=== PATIENT | male | born 1975 | race Caucasian/White ===

== ENCOUNTER 2020-04-30 03:58 | Emergency (ER) | payer SELFPAY ==
[~2020-04-30] VITALS: Ht 175.3 cm; Wt 83.2 kg
--- NOTE | 2020-04-30 04:10 | PHYS DOC ---
General Adult HPI: HPI: "..I got over heated a week ago working with a [employer] e[employer].. .. I was working for [employer].. and I got very weak.. that was about same time.. I got this Rt. arm numbness and pain... its not gone away..." Patient is a 44 year old male inmate from [facility] who presents with above hx and complaints of tingle and numbness in Rt. arm x 1 week.. Pt. reports a " over heating episode" working last week when the Rt. arm numbness and weakness developed. Pt. 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 Pt. reportedly will be released from [facility] next week with 5 yrs probation.. Patient does still smoke tobacco occasionally. No recent travel outside the [place] area. No history of immune suppression. Patient denies any trauma to the right arm. Patient has been exposed to inmates who have COVID. Pt. reports pain and or numbness that start s in neck / shoulder area and radiates down Rt. arm. Distal capillary refill is equal to Lt. arm and hand. Sensations seem to follow radial nerve in upper arm. DTR + 2 at brachial. This is equal in both arms. No Tinel sign. Pt. is right hand dominate. Review of Systems: Review of Systems: Constitutional: Denies fever or chills Eyes: Denies change in visual acuity HENT: Denies nasal congestion or sore throat Respiratory: Denies cough or shortness of breath Cardiovascular: Denies chest pain or edema GI: Denies abdominal pain, nausea, vomiting, bloody stools or diarrhea : Denies dysuria Musculoskeletal: Complaints of Rt. arm pain, weakness, and tingle sensation the past week. Integument: Denies rash Neurologic: Denies headache, focal weakness or sensory changes Endocrine: Denies polyuria or polydipsia Lymphatic: Denies swollen glands Psychiatric: Denies depression or anxiety Heart Score: HEART Score for Chest Pain: HEART Score for Chest Pain Response (Comments) Value History Slighlty/Non-Suspicious 0 ECG Normal 0 Age < 45 0 Risk Factors 1 or 2 Risk Factors 1 Total 1 Risk Factors: Risk Factors: DM, Current or recent (<one month) smoker, HTN, HLP, family history of CAD, obesity. Risk Scores: Score 0 - 3: 2.5% MACE over next 6 weeks - Discharge Home Score 4 - 6: 20.3% MACE over next 6 weeks - Admit for Clinical Observation Score 7 - 10: 72.7% MACE over next 6 weeks - Early Invasive Strategies Family History: Family History: Non Contributory Current Medications: Current Meds: See Nursing for home meds. Allergies: Allergies: NKDA Physical Exam: PE: Constitutional: Well developed, well nourished, no acute distress, non-toxic appearance. [] HENT: Normocephalic, atraumatic, bilateral external ears normal, oropharynx moist, no oral exudates, nose normal. [] Eyes: PERRLA, EOMI, conjunctiva normal, no discharge. [] Neck: Normal range of motion, mild trapezius on Rt. tenderness, supple, no stridor. [] Cardiovascular: Bradycardic heart rate regular rhythm, no murmur [] Lungs & Thorax: Bilateral breath sounds equal at apexes with few scattered wheezes on auscultation [] Abdomen: Bowel sounds normal, soft, no tenderness, no masses, no pulsatile masses. [] Skin: Warm, dry, no erythema, no rash. Multiple tattoos Back: No tenderness, no CVA tenderness. [] Extremities: Rt. arm tenderness- seems to follow radial nerve , , no cyanosis, no clubbing, ROM intact, no edema. [] Neurologic: Alert and oriented X 3, normal motor function, normal sensory function, no focal deficits noted. DTR + 2 brachial. Psychologic: Affect anxious, judgement normal, mood normal. [] EKG: EKG: My interpretation of EKG shows a sinus bradycardia at 57 bpm. No findings of acute STEMI of contralateral changes [] Radiology/Procedures: Radiology/Procedures: [][address] [address] IMAGING REPORT Signed PATIENT: RHIANNA PARISI AACCOUNT: [id number] : 1975 LOCATION: ER AGE: 44 SEX: M EXAM STATUS: REG ER ORD. PHYSICIAN: KATHY ARTEAGA MD REASON: Hx. Rt. arm numbness and weakness x 1 week PROCEDURE: CT HEAD AND CERVICAL SPINE WO INDICATION: Reason: Hx. Rt. arm numbness and weakness x 1 week / Spl. Instructions: / History: COMPARISON: None. TECHNIQUE: Axial CT images obtained through the head and cervical spine. One or more of the following individualized dose reduction techniques were utilized for this examination: 1. Automated exposure control; 2. Adjustment of the mA and/or kV according to patient size; 3. Use of iterative reconstruction technique. FINDINGS: Head: No midline shift. Suprasellar cistern is not effaced. No hydrocephalus. No acute intracranial hemorrhage. Cervical spine: Degenerative changes of the spine are identified with osteophyte formation of the vertebral body endplates as well as uncovertebral and facet hypertrophy with some small disc protrusions as well. No evidence of acute fracture or dislocation IMPRESSION: * No acute intracranial hemorrhage. * No acute fracture of the cervical spine. * There is degenerative changes of the cervical spine. Electronically signed by: Guillermo Peterson MD (04/30/2020 5:26 AM) [id number] DICTATED AND SIGNED BY: GUILLERMO PETERSON MD DATE: 04/30/20525 CC: KATHY ARTEAGA MD; PCP,NO ~ Course & Med Decision Making: Course & Med Decision Making Pertinent Labs and Imaging studies reviewed. (See chart for details) Patient take Tylenol or ibuprofen for discomfort. Patient use ice packs as needed. Patient follow-up with primary care. Return if any concerns. Impression: 1. 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 Cervical digit degenerative joint changes 3 . Possible Over use syndrome [] Dragon Disclaimer: Dragon Disclaimer: This electronic medical record was generated, in whole or in part, using a voice recognition dictation system. Departure Departure: Disposition: 01 HOME/RESIDENCE PRIOR TO ADM Condition: STABLE Referrals: PCP,NO (PCP) Justification of Admission: Justification of Admission: Justification of Admission Dx: N/A Dragon Disclaimer This chart was dictated in whole or in part using Voice Recognition software in a busy, high-work load, and often noisy Emergency Department environment. It may contain unintended and wholly unrecognized errors or omissions. KATHY ARTEAGA MD Apr 30, 2020 04:10
[2020-04-30] MEDS ORDERED: IV RINGERS SOLUTION,LACTATED 1,000 ML IV SCH (04:18)
[2020-04-30] MEDS ORDERED: KETOROLAC 30 MG/ML VIAL. IVP ONE (04:30)
[2020-04-30 04:58] LABS: CALCIUM 8.4 mg/dL (8.5-10.1); CREATININE 0.9 mg/dL (0.7-1.3); GFR 92.5; POTASSIUM 4.2 mmol/L (3.5-5.1)
[2020-04-30 05:00] LABS: BASO % 1 % (0-3); EOS # 0.2 x10^3/uL (0.0-0.7); EOS % 4 % (0-3); HEMATOCRIT 39.1 % (39.0-53.0); HEMOGLOBIN 13.4 g/dL (13.0-17.5); LYMPH # 1.3 x10^3/uL (1.0-4.8); LYMPH % 27 % (24-48); MEAN CORPUSCULAR HEMOGLOBIN 34 pg (25-35); MEAN CORPUSCULAR HGB CONC 34 g/dL (31-37); MEAN CORPUSCULAR VOLUME 98 fL (79-100); MONO # 0.5 x10^3/uL (0.0-1.1); MONO % 11 % (0-9); NEUT # 2.9 x10^3uL (1.8-7.7); NEUT % 58 % (31-73); PLATELET COUNT 229 x10^3/uL (140-400); RED BLOOD COUNT 3.98 x10^6/uL (4.30-5.70); RED CELL DISTRIBUTION WIDTH 13.2 % (11.5-14.5)
--- NOTE | 2020-04-30 05:03 | EKG ---
[address] [address] Test Date: 2020-04-30 Test Time: 04:11:05 Pat Name: RHIANNA PARISI Department: Room: Gender: M [employer]: : 1975 Requested By: KATHY ARTEAGA Order Number: [id number] Reading MD: Richi Lyons MD Measurements Intervals [place] Rate: 57 P: 29 WA: 144 QRS: 56 QRSD: 102 T: 42 QT: 398 QTc: 390 Interpretive Statements SINUS RHYTHM Electronically Signed On 05-02-2020 13:18:18 CDT by Richi Lyons MD
[2020-04-30 05:10] LABS: ALBUMIN 3.6 g/dL (3.4-5.0); C REACTIVE PROTEIN 7.6 mg/L (0-3.3); DIRECT BILIRUBIN 0.1 mg/dL (0.0-0.2); TOTAL BILIRUBIN 0.4 mg/dL (0.2-1.0); TOTAL PROTEIN 6.9 g/dL (6.4-8.2)
--- NOTE | 2020-04-30 05:29 | RAD ---
INDICATION: Reason: Hx. Rt. arm numbness and weakness x 1 week / Spl. Instructions: / History: COMPARISON: None. TECHNIQUE: Axial CT images obtained through the head and cervical spine. One or more of the following individualized dose reduction techniques were utilized for this examination: 1. Automated exposure control; 2. Adjustment of the mA and/or kV according to patient size; 3. Use of iterative reconstruction technique. FINDINGS: Head: No midline shift. Suprasellar cistern is not effaced. No hydrocephalus. No acute intracranial hemorrhage. Cervical spine: Degenerative changes of the spine are identified with osteophyte formation of the vertebral body endplates as well as uncovertebral and facet hypertrophy with some small disc protrusions as well. No evidence of acute fracture or dislocation IMPRESSION: * No acute intracranial hemorrhage. * No acute fracture of the cervical spine. * There is degenerative changes of the cervical spine. Electronically signed by: Harris Bermudez MD (04/30/2020 5:26 AM) [id number]
[2020-04-30 05:55] VITALS: BP 117/66
[2020-04-30 05:58] LABS: BACTERIA,URINE FEW /HPF (0-FEW); BILIRUBIN,URINE NEG (NEG); CLARITY,URINE HAZY; COLOR,URINE YELLOW; GLUCOSE,URINE NEG (NEG); NITRITE,URINE NEG (NEG); RBC,URINE 0 /HPF (0-2); SQUAMOUS EPITHELIAL CELL,UR OCC /LPF; WBC,URINE 0 /HPF (0-4)
--- NOTE | 2020-04-30 06:49 | RAD ---
INDICATION: Reason: cp, rt. arm pain, dyspnea / Spl. Instructions: / History: COMPARISON: None. FINDINGS: 2 view of chest obtained. No focal airspace consolidation or pulmonary edema. There is some mild osteophyte formation of the spine. Cardiac silhouette is unremarkable. IMPRESSION: * No focal airspace consolidation or edema. Electronically signed by: Harris Bermudez MD (04/30/2020 6:46 AM) [id number]
== END 2020-04-30 05:55 | disposition home or self-care (01) ==
LOC: ER 03:58
DX: M47.812 Spondylosis without myelopathy or radiculopathy, cervical region (principal); F17.200 Nicotine dependence, unspecified, uncomplicated
CPT/HCPCS: 36415; 70450; 71046; 72125; 80048; 80076; 81001; 82550; 83690; 83735; 83880; 84443; 84484; 85025; 85610; 85730; 86140; 86705; 86709; 86803; 87340; 93005; 96374; 99285; J1885; J7120

== ENCOUNTER 2020-05-09 19:28 | Emergency (ER) | payer SELFPAY ==
[~2020-05-09] VITALS: Ht 175.3 cm; Wt 81.0 kg
[2020-05-09] MEDS ORDERED: IV NORMAL SALINE 1,000ML 1,000 ML IV ONE ×2 (19:30→20:30)
--- NOTE | 2020-05-09 19:44 | PHYS DOC ---
Past History Past Medical History: No Pertinent History Past Surgical History: Appendectomy Alcohol Use: None General Adult EDM: Chief Complaint: NAUSEA/VOMITING/DIARRHEA HPI: HPI: Patient is a 44-year-old male who was brought here by EMS from home due to nausea vomiting and muscle cramping. 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 He did not drink much water, he came inside and start having nausea vomiting and and muscle cramping everywhere. Patient feels weak and dizzy so he called EMS to take him here for evaluation. Patient denies any abdominal pain, no headache, no chest pain, no trouble breathing, no cough or fever. Review of Systems: Review of Systems: Constitutional: Denies fever or chills Eyes: Denies change in visual acuity HENT: Denies nasal congestion or sore throat Respiratory: Denies cough or shortness of breath Cardiovascular: Denies chest pain or edema GI: Denies abdominal pain, positive for nausea, vomiting, no bloody stools or diarrhea : Denies dysuria Musculoskeletal: Positive for muscle cramping and joint pain Integument: Denies rash Neurologic: Denies headache, focal weakness or sensory changes Endocrine: Denies polyuria or polydipsia Lymphatic: Denies swollen glands Psychiatric: Denies depression or anxiety Heart Score: Risk Factors: Risk Factors: DM, Current or recent (<one month) smoker, HTN, HLP, family history of CAD, obesity. Risk Scores: Score 0 - 3: 2.5% MACE over next 6 weeks - Discharge Home Score 4 - 6: 20.3% MACE over next 6 weeks - Admit for Clinical Observation Score 7 - 10: 72.7% MACE over next 6 weeks - Early Invasive Strategies Current Medications: Current Meds: Current Medications Medications (Trade) Dose Ordered Sig/Shane Start Time Stop Time Status Last Admin Dose Admin Sodium Chloride 1,000 ml @ 1,000 mls/hr 1X ONCE 05/09/20 19:30 05/09/20 20:29 UNV Allergies: Allergies: Allergies Coded Allergies Type Severity Reaction Last Updated Verified No Known Drug Allergies 04/30/20 No Physical Exam: PE: Constitutional: Well developed, well nourished, no acute distress, non-toxic appearance. [] HENT: Normocephalic, atraumatic, bilateral external ears normal, oropharynx moist, no oral exudates, nose normal. [] Eyes: PERRLA, EOMI, conjunctiva normal, no discharge. [] Neck: Normal range of motion, no tenderness, supple, no stridor. [] Cardiovascular:Heart rate regular rhythm, no murmur [] Lungs & Thorax: Bilateral breath sounds clear to auscultation [] Abdomen: Bowel sounds normal, soft, no tenderness, no masses, no pulsatile masses. [] Skin: Warm, dry, no erythema, no rash. [] Back: No tenderness, no CVA tenderness. [] Extremities: No tenderness, no cyanosis, no clubbing, ROM intact, no edema. [] Neurologic: Alert and oriented X 3, normal motor function, normal sensory function, no focal deficits noted. [] Psychologic: Affect normal, judgement normal, mood normal. [] Current Patient Data: Labs: Laboratory Tests Test 05/09/20 19:45 05/09/20 21:05 White Blood Count 14.6 x10^3/uL Red Blood Count 4.93 x10^6/uL Hemoglobin 16.6 g/dL Hematocrit 47.6 % Mean Corpuscular Volume 97 fL Mean Corpuscular Hemoglobin 34 pg Mean Corpuscular Hemoglobin Concent 35 g/dL Red Cell Distribution Width 13.0 % Platelet Count 346 x10^3/uL Neutrophils (%) (Auto) 93 % Lymphocytes (%) (Auto) 4 % Monocytes (%) (Auto) 3 % Eosinophils (%) (Auto) 0 % Basophils (%) (Auto) 0 % Neutrophils # (Auto) 13.5 x10^3uL Lymphocytes # (Auto) 0.6 x10^3/uL Monocytes # (Auto) 0.5 x10^3/uL Eosinophils # (Auto) 0.0 x10^3/uL Basophils # (Auto) 0.0 x10^3/uL Segmented Neutrophils % 88 % Band Neutrophils % 2 % Lymphocytes % 5 % Monocytes % 5 % Platelet Estimate Adequate Sodium Level 139 mmol/L 139 mmol/L Potassium Level 4.1 mmol/L 4.4 mmol/L Chloride Level 99 mmol/L 106 mmol/L Carbon Dioxide Level 20 mmol/L 19 mmol/L Anion Gap 20 14 Blood Urea Nitrogen 33 mg/dL 30 mg/dL Creatinine 2.3 mg/dL 1.9 mg/dL Estimated GFR (Cockcroft-Gault) 31.3 39.1 BUN/Creatinine Ratio 14 Glucose Level 130 mg/dL 95 mg/dL Calcium Level 10.9 mg/dL 9.0 mg/dL Magnesium Level 2.3 mg/dL Total Bilirubin 1.8 mg/dL Aspartate Amino Transf (AST/SGOT) 18 U/L Alanine Aminotransferase (ALT/SGPT) 35 U/L Alkaline Phosphatase 104 U/L Total Protein 9.6 g/dL Albumin 5.5 g/dL Albumin/Globulin Ratio 1.3 Current Medications Medications (Trade) Dose Ordered Sig/Shane Route PRN Reason Start Time Stop Time Status Last Admin Dose Admin Sodium Chloride 1,000 ml @ 1,000 mls/hr 1X ONCE IV 05/09/20 19:30 05/09/20 20:29 DC 05/09/20 20:29 Sodium Chloride 1,000 ml @ 1,000 mls/hr 1X ONCE IV 05/09/20 20:30 05/09/20 21:29 DC 05/09/20 20:29 EKG: EKG: [] Radiology/Procedures: Radiology/Procedures: [] Course & Med Decision Making: Course & Med Decision Making Pertinent Labs and Imaging studies reviewed. (See chart for details) Patient is a 44-year-old male who was felt to be dehydrated from working outside. Patient was given 2 L normal saline IV bolus, he feels much better. His renal function did improve from 2.3 TO 1.9. Patient will be discharged home, he was given instruction to follow-up with his family doctor fro reevaluation this week. Lg Disclaimer: Lg Disclaimer: This electronic medical record was generated, in whole or in part, using a voice recognition dictation system. Departure Departure: Impression: Primary Impression: Dehydration Additional Impressions: Acute kidney insufficiency Heat exhaustion Disposition: HOME/RESIDENCE PRIOR TO ADM Condition: IMPROVED Referrals: PCP,NO (PCP) please follow up with your family doctor in 2 days for reevaluation. Patient Instructions: Dehydration, Adult, Heat Illness-SportsMed Additional Instructions: drinking plenty of fluid, avoid the heat for a few day. Justification of Admission: Justification of Admission: Justification of Admission Dx: N/A ADRIANNA ONEAL DO May 09, 2020 19:44
[2020-05-09 20:09] LABS: BASO % 0 % (0-3); EOS % 0 % (0-3); HEMATOCRIT 47.6 % (39.0-53.0); HEMOGLOBIN 16.6 g/dL (13.0-17.5); LYMPH # 0.6 x10^3/uL (1.0-4.8); LYMPH % 4 % (24-48); MEAN CORPUSCULAR HEMOGLOBIN 34 pg (25-35); MEAN CORPUSCULAR HGB CONC 35 g/dL (31-37); MEAN CORPUSCULAR VOLUME 97 fL (79-100); MONO # 0.5 x10^3/uL (0.0-1.1); MONO % 3 % (0-9); NEUT # 13.5 x10^3uL (1.8-7.7); NEUT % 93 % (31-73); PLATELET COUNT 346 x10^3/uL (140-400); RED BLOOD COUNT 4.93 x10^6/uL (4.30-5.70); WHITE BLOOD COUNT 14.6 x10^3/uL (4.0-11.0)
[2020-05-09 20:21] LABS: CALCIUM 10.9 mg/dL (8.5-10.1); CREATININE 2.3 mg/dL (0.7-1.3); GFR 31.3; POTASSIUM 4.1 mmol/L (3.5-5.1)
[2020-05-09 20:24] LABS: ALBUMIN 5.5 g/dL (3.4-5.0); ALBUMIN/GLOBULIN RATIO 1.3 (1.0-1.7); MAGNESIUM 2.3 mg/dL (1.8-2.4); TOTAL BILIRUBIN 1.8 mg/dL (0.2-1.0); TOTAL PROTEIN 9.6 g/dL (6.4-8.2)
[2020-05-09 20:59] VITALS: BP 103/53
[2020-05-09 21:16] LABS: % BANDS 2 % (0-9); % LYMPHS 5 % (24-48); % MONOS 5 % (0-10); % SEGS 88 % (35-66); PLT ESTIMATE ADEQUATE (ADEQUATE)
[2020-05-09 21:31] LABS: CREATININE 1.9 mg/dL (0.7-1.3); GFR 39.1; POTASSIUM 4.4 mmol/L (3.5-5.1)
== END 2020-05-09 21:45 | disposition home or self-care (01) ==
LOC: ER 19:28
DX: T67.5XXA Heat exhaustion, unspecified, initial encounter (principal); E86.0 Dehydration; N28.9 Disorder of kidney and ureter, unspecified; X58.XXXA Exposure to other specified factors, initial encounter; Y93.89 Activity, other specified; Y92.89 Other specified places as the place of occurrence of the external cause; Y99.8 Other external cause status
CPT/HCPCS: 36415; 80048; 80053; 83735; 85007; 85025; 96360; 99283; J7030

== ENCOUNTER 2020-07-26 20:59 | Emergency (ER) | payer SELFPAY ==
[~2020-07-26] VITALS: Ht 175.3 cm; Wt 76.8 kg
[2020-07-26 21:09] VITALS: BP 154/75
[2020-07-26] MEDS ORDERED: KETO5DRO72 EACHEYE (21:21)
[2020-07-26] MEDS ORDERED: ERYT1OIN6 OP (21:21)
--- NOTE | 2020-07-26 21:22 | PHYS DOC ---
Past History Past Medical History: No Pertinent History Past Surgical History: Appendectomy Alcohol Use: Occasionally Adult General Chief Complaint Chief Complaint: EYE PROBLEMS HPI HPI Patient is a 45-year-old male who presents with left eye pain. 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 Patient reported immediate pain but was able to work through it, completed the rest of his workday and went home. Patient reported constant burning and watering of the left eye this evening that was irritating him prompting him to seek evaluation at our ER. He has had no fever, he has foreign body sensation and constant tearing. He admits focal pain but denies any pain with ocular movements. He reports blurry vision from tearing up but no actual changes in vision reported. He does not wear contacts Review of Systems Review of Systems Fourteen body systems of review of systems have been reviewed. See HPI for pertinent positives and negative responses, other gerber all other systems are negative, non-pertinent or non-contributory Allergies Allergies Allergies Coded Allergies Type Severity Reaction Last Updated Verified No Known Drug Allergies 04/30/20 No Physical Exam Physical Exam Constitutional: Well developed, well nourished, no acute distress, non-toxic appearance. HENT: Normocephalic, atraumatic, bilateral external ears normal, oropharynx moist, no oral exudates, nose normal. Eyes: PERRLA, EOMI, left conjunctive a injected, no discharge but obvious tearing and redness around left orbit without any signs or symptoms of acute infection or fluctuant mass such as abscess. No crepitus. Visual acuity 20/20 with both eyes, 20/20 with right eye, and 20/25 in left eye. Formal ophthalmic examination performed, eyes numbed with tetracaine hydrochloride, fluorescein slit lamp exam performed with obvious corneal abrasion apparent at 5 o'clock position of the left eye iris without any involvement over the pupil, scleral injected, no obvious foreign bodies found in orbit or on inferior aspects of eyelids, eye pressure grossly benign with palpation Neck: Normal range of motion, no tenderness, supple, no stridor. Cardiovascular: Heart rate regular, sinus rhythm, no murmurs rubs or gallops Lungs & Thorax: Bilateral breath sounds clear to auscultation Abdomen: Bowel sounds normal, soft, no tenderness, no masses, no pulsatile masses. Nonsurgical abdomen, no peritoneal signs Skin: Warm, dry, no erythema, no rash. Back: No tenderness, no CVA tenderness. Extremities: No tenderness, no cyanosis, no clubbing, ROM intact, no edema. Neurologic: Alert and oriented X 3, grossly normal motor & sensory function, no focal deficits noted. Psychologic: Affect normal, judgement normal, mood normal. Current Patient Data Vital Signs Vital Signs Date Time Temp Pulse Resp B/P (MAP) Pulse Ox O2 Delivery O2 Flow Rate FiO2 07/26/20 21:09 98.1 69 16 154/75 (101) 98 EKG EKG [] Radiology/Procedures Radiology/Procedures [] Course & Med Decision Making Course & Med Decision Making Ambulatory well-appearing afebrile patient seen on ER arrival ABCs non-concerning Comprehensive history and physical exam performed Clinical findings consistent with most likely diagnosis of corneal abrasion of left eye without retained foreign body. I also discussed other potential but less likely causes of his left ocular pain Given findings, I feel there is no indication for further ER diagnostic work-up or need for emergent ophthalmic evaluation at this time I feel patient's condition will resolve with ophthalmic antibiotics and an short course of ophthalmic NSAID for as needed pain use. Patient follow-up with primary care physician in upcoming 3 to 10 days time to ensure continued symptomatic improvement with consideration for Ortho referral Strict return precautions discussed with good understanding by patient, all questions and concerns addressed prior to ER departure in stable condition with prescription for ophthalmic erythromycin ointment and ophthalmic ketorolac Dragon Disclaimer Lg Disclaimer This electronic medical record was generated, in whole or in part, using a voice recognition dictation system. Departure Departure: Impression: Primary Impression: Corneal abrasion, left Disposition: 01 HOME/RESIDENCE PRIOR TO ADM Condition: STABLE Referrals: PCP,NO (PCP) Patient Instructions: Eye - Corneal Abrasion Scripts Ketorolac Tromethamine (KETOROLAC TROMETHAMINE) 5 Ml Drops 1 DROP EACHEYE QID for pain for 2 Days, #5 ML 0 Refills Prov: JAEL CHOI DO 07/26/20 Erythromycin Base (Erythromycin) 1 Gm Oint...g. 1 GM OP QID for CORNEAL ABRASION for 5 Days, MISC Prov: JAEL CHOI DO 07/26/20 Justification of Admission: Justification of Admission: Justification of Admission Dx: N/A JAEL CHOI DO Jul 26, 2020 21:22
[2020-07-26] MEDS ORDERED: ERYTHROMYCIN 0.5% OPHTH OINTMENT 1GM TUBE. OS ONE (21:30)
== END 2020-07-26 21:28 | disposition home or self-care (01) ==
LOC: ER 20:59
DX: S05.02XA Injury of conjunctiva and corneal abrasion without foreign body, left eye, initial encounter (principal); X58.XXXA Exposure to other specified factors, initial encounter; Y93.89 Activity, other specified; Y92.89 Other specified places as the place of occurrence of the external cause; Y99.8 Other external cause status
CPT/HCPCS: 99283